=== PATIENT | male | born 1945 | race Caucasian/White ===

== ENCOUNTER → 2021-06-11 10:34 | Outpatient (BNVA) | payer MEDICARE, OTHER, SELFPAY | PROVIDERS: PCP Family Medicine; Visit Provider Internal Medicine Cardiovascular Disease | DX: Z79.01 Long term (current) use of anticoagulants (principal) ==

== ENCOUNTER → 2021-06-20 08:06 | Outpatient (BNVA) | payer MEDICARE, OTHER, SELFPAY | PROVIDERS: PCP Family Medicine; Visit Provider Internal Medicine Cardiovascular Disease | DX: Z79.01 Long term (current) use of anticoagulants (principal) ==

== ENCOUNTER → 2021-06-25 10:13 | Outpatient (BNVA) | payer MEDICARE, OTHER, SELFPAY | PROVIDERS: PCP Family Medicine; Visit Provider Internal Medicine Cardiovascular Disease | DX: Z79.01 Long term (current) use of anticoagulants (principal) ==

== ENCOUNTER → 2021-07-04 08:57 | Outpatient (BNVA) | payer MEDICARE, OTHER, SELFPAY | PROVIDERS: PCP Family Medicine; Visit Provider Internal Medicine Cardiovascular Disease | DX: Z79.01 Long term (current) use of anticoagulants (principal) ==

== ENCOUNTER → 2021-07-11 13:25 | Outpatient (BNVA) | payer MEDICARE, OTHER, SELFPAY | PROVIDERS: PCP Family Medicine; Visit Provider Internal Medicine Cardiovascular Disease | DX: I35.8 Other nonrheumatic aortic valve disorders (principal); Z79.01 Long term (current) use of anticoagulants ==

== ENCOUNTER → 2021-07-18 08:54 | Outpatient (BNVA) | payer MEDICARE, OTHER, SELFPAY | PROVIDERS: PCP Family Medicine; Visit Provider Internal Medicine Cardiovascular Disease | DX: Z79.01 Long term (current) use of anticoagulants (principal) ==

== ENCOUNTER → 2021-07-30 08:01 | Outpatient (BNVA) | payer MEDICARE, OTHER, SELFPAY | PROVIDERS: PCP Family Medicine; Visit Provider Internal Medicine Cardiovascular Disease | DX: Z79.01 Long term (current) use of anticoagulants (principal) ==

== ENCOUNTER → 2021-08-08 08:43 | Outpatient (BNVA) | payer MEDICARE, OTHER, SELFPAY | PROVIDERS: PCP Family Medicine; Visit Provider Internal Medicine Cardiovascular Disease | DX: Z79.01 Long term (current) use of anticoagulants (principal) ==

== ENCOUNTER 2021-08-14 10:46 | Outpatient (CLI) | payer MEDICARE, OTHER, SELFPAY ==
--- NOTE | 2021-08-14 10:57 | USCV_ITS ---
Hernandez Madrigal Age: 76 Gender: M : 1945 Exam Date: 08/14/2021 11:24 Ordering Phys: Samira Mccormick MD ([email or web address]) Technologist: SHANNAN [place] [facility] [place]: Prosthetic aortic valve BP: 156 / 72 HR: 61 Rhythm: Sinus Technical Quality: Adequate MEASUREMENTS (Male / Female) Normal Values 2D ECHO LV Diastolic Diameter PLAX 3.8 cm 4.2 - 5.9 / 3.9 - 5.3 cm LV Systolic Diameter PLAX 2.3 cm IVS Diastolic Thickness 1.0 cm 0.6 - 1.0 / 0.6 - 0.9 cm IVS Systolic Thickness 1.3 cm LVPW Diastolic Thickness 1.3 cm 0.6 - 1.0 / 0.6 - 0.9 cm LVPW Systolic Thickness 1.4 cm LVOT Diameter 1.9 cm LV Ejection Fraction 2D Teich 35.7 % LV Ejection Fraction MOD 2C 72.3 % LV Ejection Fraction 2C AL 72.5 % LA Diameter 2.2 cm Aorta at Sinotubular Diameter 1.6 cm IVC Diameter 1.8 cm M-MODE Aortic Annulus Diameter 1.6 cm LA Ao Ratio MM 1.3 MV E Point Septal Separation 0.3 cm DOPPLER AV Peak Velocity 175.0 cm/s LVOT Peak Velocity 113.0 cm/s AV Area Cont Eq vti 2.2 cm squared AV Area Cont Eq pk 1.8 cm squared MV Area PHT 2.0 cm squared Mitral E to A Ratio 0.8 MV E' Velocity 35.0 cm/s Mitral E to MV E' Ratio 9.5 Mitral E to LV E' Lateral Ratio 10.6 Mitral E to LV E' Septal Ratio 8.7 TR Peak Velocity 259.0 cm/s TR Peak Gradient 26.8 mmHg TV Peak E Velocity 60.0 cm/s Right Atrial Pressure 3.0 mmHg Pulmonary Artery Systolic Pressu 29.8 mmHg PV Peak Velocity 113.3 cm/s RV Acceleration Time 0.2 s RV Ejection Time 0.3 s RV AcT/ET 0.5 FINDINGS Left Ventricle Normal left ventricular cavity size. Upper normal left ventricular wall thickness. Normal left ventricular systolic function. Left ventricular ejection fraction is estimated at 75%. No regional wall motion abnormalities. Normal diastolic function. Right Ventricle Normal right ventricular size and systolic function. RVSP could not be calculated due to incomplete tricuspid regurgitation velocity profile. Right Atrium Right atrium not well visualized. Right atrial pressure estimated at 3 mmHg. Left Atrium Normal left atrial size. Mitral Valve Moderate mitral annular calcification. Mildly thickened mitral valve. No mitral valve stenosis. No mitral valve regurgitation. Aortic Valve Mechanical prosthetic aortic valve well-seated and normally functioning. No aortic valve stenosis or regurgitation. Tricuspid Valve Structurally normal tricuspid valve. Trace tricuspid valve regurgitation. Pulmonic Valve Pulmonic valve not well visualized. No pulmonary valve stenosis. No pulmonary valve regurgitation. Pericardium No pericardial effusion. Prominent epicardial fat. Aorta Normal-sized aortic root. Normal-sized inferior vena cava with normal respiratory variation. CONCLUSIONS 1. This is a technically difficult study. Ultrasound enhancing agent was used per protocol. 2. Normal left ventricular cavity size and systolic function. Upper normal left ventricular wall thickness. Left ventricular ejection fraction is estimated at 75%. No regional wall motion abnormalities. Normal diastolic function. 3. Mechanical prosthetic aortic valve well-seated and normally functioning. No aortic valve stenosis or regurgitation. 4. No prior similar studies to compare. Samira Mccormick MD (Electronically Signed) Final Date: 20 Aug 2021 18:42 S
[2021-08-14] MEDS: perflutren protein-a microsphr 0.22 mg/mL SDV 3 mL IV (12:18)
== END 2021-08-14 10:47 | disposition home or self-care (01) ==
LOC: RAD 10:51
PROVIDERS: PCP Family Medicine; Visit Provider Internal Medicine Gastroenterology
DX: Z95.2 Presence of prosthetic heart valve (principal)
CPT/HCPCS: C8929

== ENCOUNTER → 2021-08-15 10:59 | Outpatient (BNVA) | payer MEDICARE, OTHER, SELFPAY | PROVIDERS: PCP Family Medicine; Visit Provider Internal Medicine Cardiovascular Disease | DX: Z79.01 Long term (current) use of anticoagulants (principal) ==

== ENCOUNTER → 2021-08-22 12:58 | Outpatient (BNVA) | payer MEDICARE, OTHER, SELFPAY | PROVIDERS: PCP Family Medicine; Visit Provider Internal Medicine Cardiovascular Disease | DX: Z79.01 Long term (current) use of anticoagulants (principal) ==

== ENCOUNTER → 2021-08-29 11:39 | Outpatient (BNVA) | payer MEDICARE, OTHER, SELFPAY | PROVIDERS: PCP Family Medicine; Visit Provider Internal Medicine Cardiovascular Disease | DX: Z79.01 Long term (current) use of anticoagulants (principal) ==

== ENCOUNTER → 2021-09-03 08:48 | Outpatient (BNVA) | payer MEDICARE, OTHER, SELFPAY | PROVIDERS: PCP Family Medicine; Visit Provider Internal Medicine Cardiovascular Disease | DX: Z95.2 Presence of prosthetic heart valve (principal) | CPT/HCPCS: 85610 ==

== ENCOUNTER → 2021-09-05 13:02 | Outpatient (BNVA) | payer MEDICARE, OTHER, SELFPAY | PROVIDERS: PCP Family Medicine; Visit Provider Internal Medicine Cardiovascular Disease | DX: Z79.01 Long term (current) use of anticoagulants (principal) ==

== ENCOUNTER → 2021-09-12 10:24 | Outpatient (BNVA) | payer MEDICARE, OTHER, SELFPAY | PROVIDERS: PCP Family Medicine; Visit Provider Internal Medicine Cardiovascular Disease | DX: Z79.01 Long term (current) use of anticoagulants (principal) ==

== ENCOUNTER → 2021-09-19 09:09 | Outpatient (BNVA) | payer MEDICARE, OTHER, SELFPAY | PROVIDERS: PCP Family Medicine; Visit Provider Internal Medicine Cardiovascular Disease | DX: Z79.01 Long term (current) use of anticoagulants (principal) ==

== ENCOUNTER → 2021-09-26 09:15 | Outpatient (BNVA) | payer MEDICARE, OTHER, SELFPAY | PROVIDERS: PCP Family Medicine; Visit Provider Internal Medicine Cardiovascular Disease | DX: Z79.01 Long term (current) use of anticoagulants (principal) ==

== ENCOUNTER → 2021-10-02 16:51 | Outpatient (BNVA) | payer MEDICARE, OTHER, SELFPAY | PROVIDERS: PCP Family Medicine; Visit Provider Internal Medicine Cardiovascular Disease | DX: Z79.01 Long term (current) use of anticoagulants (principal) ==

== ENCOUNTER → 2021-10-10 10:26 | Outpatient (BNVA) | payer MEDICARE, OTHER, SELFPAY | PROVIDERS: PCP Family Medicine; Visit Provider Internal Medicine Cardiovascular Disease | DX: Z79.01 Long term (current) use of anticoagulants (principal) ==

== ENCOUNTER → 2021-10-17 13:51 | Outpatient (BNVA) | payer MEDICARE, OTHER, SELFPAY | PROVIDERS: PCP Family Medicine; Visit Provider Internal Medicine Cardiovascular Disease | DX: Z79.01 Long term (current) use of anticoagulants (principal) ==

== ENCOUNTER → 2021-10-24 13:25 | Outpatient (BNVA) | payer MEDICARE, OTHER, SELFPAY | PROVIDERS: PCP Family Medicine; Visit Provider Internal Medicine Cardiovascular Disease | DX: Z79.01 Long term (current) use of anticoagulants (principal) ==

== ENCOUNTER → 2021-10-31 08:18 | Outpatient (BNVA) | payer MEDICARE, OTHER, SELFPAY | PROVIDERS: PCP Family Medicine; Visit Provider Internal Medicine Cardiovascular Disease | DX: Z79.01 Long term (current) use of anticoagulants (principal) ==

== ENCOUNTER → 2021-11-18 13:16 | Outpatient (BNVA) | payer MEDICARE, OTHER, SELFPAY | PROVIDERS: PCP Family Medicine; Visit Provider Internal Medicine Cardiovascular Disease | DX: I25.10 Atherosclerotic heart disease of native coronary artery without angina pectoris (principal); I10 Essential (primary) hypertension; Z95.2 Presence of prosthetic heart valve; I45.10 Unspecified right bundle-branch block; Z95.1 Presence of aortocoronary bypass graft; Z79.01 Long term (current) use of anticoagulants; F17.200 Nicotine dependence, unspecified, uncomplicated | CPT/HCPCS: 99214 ==

== ENCOUNTER → 2022-02-06 17:15 | Outpatient (BNVA) | payer MEDICARE, OTHER, SELFPAY | PROVIDERS: PCP Family Medicine; Visit Provider Internal Medicine Cardiovascular Disease | DX: Z95.2 Presence of prosthetic heart valve (principal) | CPT/HCPCS: 85610 ==

== ENCOUNTER 2022-02-09 12:51 | Outpatient (CLI) | payer MEDICARE, OTHER, SELFPAY ==
[2022-02-09 13:47] LABS: INR 1.71 (0.8-1.2)
== END 2022-02-09 12:52 | disposition home or self-care (01) ==
LOC: LAB 12:59
PROVIDERS: PCP Family Medicine; Visit Provider Internal Medicine Cardiovascular Disease
DX: Z95.2 Presence of prosthetic heart valve (principal); Z79.01 Long term (current) use of anticoagulants
CPT/HCPCS: 36415; 85610

== ENCOUNTER → 2022-08-12 13:20 | Outpatient (BNVA) | payer MEDICARE, OTHER, SELFPAY | PROVIDERS: PCP Family Medicine; Visit Provider Internal Medicine Cardiovascular Disease | DX: I25.10 Atherosclerotic heart disease of native coronary artery without angina pectoris (principal); Z95.2 Presence of prosthetic heart valve; I45.10 Unspecified right bundle-branch block; E78.5 Hyperlipidemia, unspecified; I10 Essential (primary) hypertension; Z95.1 Presence of aortocoronary bypass graft; F17.200 Nicotine dependence, unspecified, uncomplicated; Z79.01 Long term (current) use of anticoagulants | CPT/HCPCS: 99213 ==

== ENCOUNTER → 2023-01-04 15:04 | Outpatient (BNVA) | payer MEDICARE, OTHER, SELFPAY | PROVIDERS: PCP Family Medicine; Visit Provider Nurse Practitioner Family | DX: I10 Essential (primary) hypertension (principal); F17.200 Nicotine dependence, unspecified, uncomplicated | CPT/HCPCS: 99213 ==

== ENCOUNTER → 2023-03-26 09:59 | Outpatient (BNVA) | payer MEDICARE, OTHER, SELFPAY | PROVIDERS: PCP Family Medicine; Visit Provider Internal Medicine Cardiovascular Disease | DX: Z95.2 Presence of prosthetic heart valve (principal); Z95.1 Presence of aortocoronary bypass graft; I25.10 Atherosclerotic heart disease of native coronary artery without angina pectoris; I10 Essential (primary) hypertension; E78.5 Hyperlipidemia, unspecified; I45.10 Unspecified right bundle-branch block | CPT/HCPCS: 99213 ==

== ENCOUNTER → 2023-07-15 10:41 | Outpatient (BNVA) | payer MEDICARE, OTHER, SELFPAY | PROVIDERS: PCP Family Medicine; Visit Provider Nurse Practitioner Family | DX: I25.10 Atherosclerotic heart disease of native coronary artery without angina pectoris (principal); Z95.1 Presence of aortocoronary bypass graft; I10 Essential (primary) hypertension; F17.200 Nicotine dependence, unspecified, uncomplicated; Z95.0 Presence of cardiac pacemaker; Z79.01 Long term (current) use of anticoagulants | CPT/HCPCS: 99214 ==

== ENCOUNTER → 2023-07-16 13:44 | Outpatient (BNVA) | payer MEDICARE, OTHER, SELFPAY | PROVIDERS: PCP Family Medicine; Visit Provider Nurse Practitioner Family | DX: I10 Essential (primary) hypertension (principal); Z95.1 Presence of aortocoronary bypass graft; I25.10 Atherosclerotic heart disease of native coronary artery without angina pectoris | CPT/HCPCS: 80048; 83880; 85025; 85610 ==

== ENCOUNTER 2023-08-02 12:47 | Outpatient (CLI) | payer MEDICARE, OTHER, SELFPAY ==
--- NOTE | 2023-08-02 13:00 | USCV_ITS ---
Hernandez Madrigal Age: 77 Gender: M : 1945 Exam Date: 08/02/2023 13:01 Ordering Phys: Nicolette Steiner Technologist: ILYA [place] [facility] [place]: Mechanical AOV, Increased BNP, CAD, CABG BP: 162 / 85 HR: 149 Rhythm: Sinus Technical Quality: Adequate MEASUREMENTS (Male / Female) Normal Values 2D ECHO LV Diastolic Diameter PLAX 4.9 cm 4.2 - 5.9 / 3.9 - 5.3 cm IVS Diastolic Thickness 0.9 cm 0.6 - 1.0 / 0.6 - 0.9 cm IVS Systolic Thickness 1.9 cm LVPW Diastolic Thickness 1.4 cm 0.6 - 1.0 / 0.6 - 0.9 cm LVPW Systolic Thickness 2.0 cm LVOT Diameter 2.0 cm LV Ejection Fraction 2D Teich 69.7 % LV Ejection Fraction MOD 2C 51.5 % LV Ejection Fraction 2C AL 51.4 % LA Diameter 2.7 cm RA Systolic Volume 4C AL 14.5 ml RA Systolic Volume 4C MOD 15.1 ml LA Sys Volume AL 49.1 cm cubed LA Sys Volume Index AL 30.9 cm cubed/m squared Aorta at Sinotubular Diameter 2.2 cm IVC Diameter 1.3 cm M-MODE LA Ao Ratio MM 0.9 AV Cusp Separation MM 2.0 cm DOPPLER AV Peak Velocity 166.7 cm/s LVOT Peak Velocity 60.0 cm/s AV Area Cont Eq vti 1.3 cm squared AV Area Cont Eq pk 1.1 cm squared MV Peak Velocity 77.0 cm/s MV Area PHT 1.8 cm squared TV Peak Velocity 151.5 cm/s TR Peak Velocity 187.5 cm/s TR Peak Gradient 14.1 mmHg TR Mean Velocity 147.0 cm/s TR Mean Gradient 9.5 mmHg TR Velocity Time Integral 50.6 cm Right Atrial Pressure 3.0 mmHg Pulmonary Artery Systolic Pressu 17.1 mmHg PV Peak Velocity 78.5 cm/s RV Ejection Time 0.3 s FINDINGS Left Ventricle Moderate concentric left ventricular hypertrophy. Mild hypokinesia of the basal inferior wall segment. Overall ejection fraction is 51%.Grade III/IV diastolic dysfunction (restrictive filling pattern), severely elevated filling pressures. Right Ventricle The right ventricle is normal in size and function. Right Atrium The right atrium is normal in size. Left Atrium Mildly increased left atrial size. Left atrial end-systolic volume index of 30.48 mL/m squared Mitral Valve Thickened mitral valve. Mild mitral valve regurgitation. Aortic Valve Trace to mild aortic valve regurgitation. The prosthetic valve with aortic position appears to be well-seated. Peak gradient across the aortic valve is 1.7 m/s Tricuspid Valve No gross abnormalities noted.trace tricuspid valve regurgitation. Pulmonic Valve Trace pulmonary valve regurgitation. Pericardium Normal pericardium without effusion. Aorta Normal aortic annulus size. IVC Normal inferior vena cava. CONCLUSIONS Moderate concentric left ventricular hypertrophy. Mild hypokinesia of the basal inferior wall segment. Overall ejection fraction is 51%. Grade III/IV diastolic dysfunction (restrictive filling pattern), severely elevated filling pressures. Mildly increased left atrial size. Left atrial end-systolic volume index of 30.48 mL/m squared. Thickened mitral valve. Mild mitral valve regurgitation. The prosthetic valve with aortic position appears to be well- seated. Peak gradient across the aortic valve is 1.7 m/s. Trace to mild aortic valve regurgitation. Trace pulmonary valve regurgitation. Estimated pulmonary artery peak systolic pressure, probably within normal limits There is no pericardial effusion. There are no intracardiac masses. Comparison with the previous study is difficult because the differences in the technical quality. Dr Kathia Jeong MD [facility] (Electronically Signed) Final Date: 08 August 2023 17:27 S
== END 2023-08-02 12:48 | disposition home or self-care (01) ==
LOC: RAD 12:48
PROVIDERS: PCP Family Medicine; Visit Provider Nurse Practitioner Family
DX: Z95.2 Presence of prosthetic heart valve (principal); Z95.1 Presence of aortocoronary bypass graft; I51.7 Cardiomegaly
CPT/HCPCS: 93306

== ENCOUNTER → 2023-10-06 12:58 | Outpatient (BNVA) | payer MEDICARE, OTHER, SELFPAY | PROVIDERS: PCP Family Medicine; Visit Provider Internal Medicine Cardiovascular Disease | DX: Z95.2 Presence of prosthetic heart valve (principal); Z95.1 Presence of aortocoronary bypass graft; I25.10 Atherosclerotic heart disease of native coronary artery without angina pectoris; I10 Essential (primary) hypertension; E78.5 Hyperlipidemia, unspecified; F17.210 Nicotine dependence, cigarettes, uncomplicated; Z79.01 Long term (current) use of anticoagulants | CPT/HCPCS: 99213 ==

== ENCOUNTER 2024-01-14 09:44 | Outpatient (CLI) | payer MEDICARE, OTHER, SELFPAY ==
[2024-01-14 10:30] LABS: INR 1.39 (0.83-1.21); Prothrombin Time (Patient) 17.5 Seconds (12.0-15.1)
== END 2024-01-14 09:45 | disposition home or self-care (01) ==
LOC: LAB 09:46
PROVIDERS: PCP Family Medicine; Visit Provider Internal Medicine Cardiovascular Disease
DX: Z95.2 Presence of prosthetic heart valve (principal)
CPT/HCPCS: 36415; 85610

== ENCOUNTER 2024-01-31 16:36 | Outpatient (CLI) | payer MEDICARE, OTHER, SELFPAY ==
--- NOTE | 2024-01-31 16:38 | XRR_ITS ---
PROCEDURE INFORMATION: Exam: XR Right Foot Exam date and time: 01/31/2024 4:44 PM Age: 78 years old Clinical indication: Pain; Foot; Right; Prior surgery; Surgery date: 6+ months; Additional info: R/O osteo TECHNIQUE: Imaging protocol: Radiologic exam of the right foot. Views: 3 or more views. COMPARISON: No relevant prior studies available. FINDINGS: Bones/joints: Prior amputation of the 3rd digit of the level of the metatarsophalangeal joint. Level on sclerotic focus adjacent to the 3rd metatarsal head. Areas of mild cortical irregularity also seen within the 3rd metatarsal head. Hallux valgus with an osseous bunion. Scattered mild degenerative changes throughout the interphalangeal joints. No acute fracture or dislocation. Soft tissues: Several subcutaneous gas locules are seen at the level of the 3rd metatarsal head with areas of soft tissue ulceration. Vasculature: Scattered vascular calcifications. XR/XR foot RT min 3V* [id number] IMPRESSION: Amputation of the 3rd digit at the MTP joint. Adjacent soft tissue ulceration with subcutaneous gas concerning for cellulitis. Underlying osteomyelitis difficult to entirely exclude. MRI could be considered for further assessment if warranted.
[2024-01-31 17:14] LABS: Basophils # 0.1 10^3/uL (0.0-0.1); Basophils % 0.9 %; Eosinophils # 0.1 10^3/uL (0.0-0.8); Eosinophils % 1.6 %; Hematocrit 46.9 % (37-53); Lymphocytes # 1.9 10^3/uL (0.8-4.8); Lymphocytes % 21.7 %; Mean Corpuscular HGB Conc 34.3 g/dL (30-55); Mean Corpuscular Hemoglobin 32.4 pg (27-33); Mean Corpuscular Volume 94.4 fl (82-101); Monocytes # 0.6 10^3/uL (0.2-0.9); Neutrophils % 68.1 %; Nucleated Red Blood Cells % 0 %; Platelet Count 298 10^3/cmm (157-399); Red Blood Count 4.97 10^6/uL (3.85-5.65); Red Cell Distribution Width 14.5 % (12.1-15.1); White Blood Count 8.95 10^3/uL (3.29-11.43)
[2024-01-31 17:20] LABS: Erythrocyte Sedimentation Rate 11 mm/hr (0-10)
[2024-01-31 17:51] LABS: Anion Gap 17.1 (5-19); Blood Urea Nitrogen 17 mg/dL (8-23); Calcium 9.3 mg/dL (8.5-10.5); Carbon Dioxide 24 mmol/L (22-29); Chloride 100 mmol/L (98-107); Glucose 89 mg/dL (65-115); Osmolality Calculated 285 mOsm/kg (285-295); Potassium 4.1 mmol/L (3.5-5.1); Sodium 137 mmol/L (136-145)
== END 2024-01-31 16:37 | disposition home or self-care (01) ==
LOC: LAB 16:38
PROVIDERS: PCP Family Medicine; Visit Provider Thoracic Surgery (Cardiothoracic Vascular Surgery)
DX: T87.89 Other complications of amputation stump (principal); I25.10 Atherosclerotic heart disease of native coronary artery without angina pectoris; T81.89XA Other complications of procedures, not elsewhere classified, initial encounter; X58.XXXA Exposure to other specified factors, initial encounter; I96 Gangrene, not elsewhere classified; T87.81 Dehiscence of amputation stump; Y83.8 Other surgical procedures as the cause of abnormal reaction of the patient, or of later complication, without mention of misadventure at the time of the procedure; Z89.421 Acquired absence of other right toe(s)
CPT/HCPCS: 11043; 36415; 73630; 80048; 85025; 85651; 86140; 87070; 87075; 87077; 87176; 87186; 87205; 99213

== ENCOUNTER 2024-02-15 08:02 | Outpatient (CLI) | payer MEDICARE, OTHER, SELFPAY ==
--- NOTE | 2024-02-15 08:00 | MR_ITS ---
WS: [id number] MRI RIGHT FOOT WITH AND WITHOUT CONTRAST. COMPARISON: Radiographs 01/31/2024 Multiplanar, multisequence imaging is performed with and without contrast. MultiHance 10 mL. Status post amputation third toe. At the amputation site there is edema and enhancement involving the head of the third metatarsal and the adjacent soft tissues. Fourth metatarsal: Marrow edema with enhancement in the distal 1.5 cm of the metatarsal with adjacent cellulitis. Fifth metatarsal normal. Second metatarsal: Very subtle area of edema in the very distal metatarsal head. Marked hallux valgus deformity. No significant soft tissue edema with enhancement is at the amputation site of the third phalanx and extending adjacent to the second metatarsal head. Focal soft tissue ulcer measuring 10 x 10 mm along the dorsal surface of the foot at the level of the amputated third phalanx and extending over the fourth metatarsal head. Mild enhancement but no focal abscess. MR/MR foot RT wo/w con [id number] IMPRESSION: 1. Status post amputation third toe. 2. Findings of osteomyelitis involving the head of the third metatarsal, dista l fourth metatarsal and the very distal second metatarsal head. 3. There is extensive enhancement of soft tissues consistent with cellulitis a t the level of the metatarsal heads. Most significant cellulitis at the amputat ion site of the third phalanx. 4. Dorsal soft tissue ulcer measures 10 x 10 mm with enhancement but no absces s at the level of the amputated third phalanx towards the fourth metatarsal.
[2024-02-15] MEDS: gadobenate dimeglumine 20 mL vial IV (08:55)
== END 2024-02-15 08:03 | disposition home or self-care (01) ==
LOC: RAD 08:02
PROVIDERS: PCP Family Medicine; Visit Provider Thoracic Surgery (Cardiothoracic Vascular Surgery)
DX: T81.31XA Disruption of external operation (surgical) wound, not elsewhere classified, initial encounter (principal); M86.171 Other acute osteomyelitis, right ankle and foot; L03.115 Cellulitis of right lower limb; L97.519 Non-pressure chronic ulcer of other part of right foot with unspecified severity; Z89.421 Acquired absence of other right toe(s); X58.XXXA Exposure to other specified factors, initial encounter; I96 Gangrene, not elsewhere classified; T87.81 Dehiscence of amputation stump; Y83.8 Other surgical procedures as the cause of abnormal reaction of the patient, or of later complication, without mention of misadventure at the time of the procedure
CPT/HCPCS: 11044; 73720; 87070; 87077; 87176; 87186; 87205

== ENCOUNTER 2024-02-16 13:40 | Outpatient (CLI) | payer MEDICARE, OTHER, SELFPAY ==
--- NOTE | 2024-02-16 13:45 | CTR_ITS ---
PROCEDURE INFORMATION: Exam: CTA Abdominal Aorta and Bilateral Lower Extremities (Run-off) With Contrast Exam date and time: 02/16/2024 1:52 PM Age: 78 years old Clinical indication: Osteomyelitis. Prior right foot surgery. TECHNIQUE: Imaging protocol: Computed tomographic angiography of the of the abdominal aorta, pelvis and bilateral lower extremities with contrast. 3D rendering (Not supervised by radiologist): MIP and/or 3D reconstructed images were created by the technologist. Radiation optimization: All CT scans at this facility use at least one of these dose optimization techniques: automated exposure control; mA and/or kV adjustment per patient size (includes targeted exams where dose is matched to clinical indication); or iterative reconstruction. Contrast material: OMNI 350; Contrast volume: 125 ml; Contrast route: INTRAVENOUS (IV); COMPARISON: MR foot RT wo/w con [id number] 02/15/2024 8:27 AM RADIATION DOSE METRICS: Total DLP (mGy-cm): 1165.27 FINDINGS: Aorta: There is prominent atherosclerotic plaque. Infrarenal abdominal aorta is ectatic measuring 2.9 cm in the transverse dimension. 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 Celiac trunk and mesenteric arteries: There is atherosclerotic plaque at the origin of the celiac trunk without significant stenosis. Atherosclerotic plaque is present in the splenic artery with regions of moderate to severe stenosis. There is atherosclerotic plaque in the proximal superior mesenteric artery without significant stenosis. Renal arteries: There is atherosclerotic plaque in the proximal right renal artery with a short segment of moderate to severe stenosis proximally 4 mm distal to the origin. Atherosclerotic plaque at the origin of the left renal artery without significant stenosis. Right iliac arteries: Prominent atherosclerotic plaque. The right internal iliac artery is occluded by plaque. Atherosclerotic plaque in the right external iliac artery results in regions of [id number] stenosis. Right femoral/popliteal arteries: There is atherosclerotic plaque in the right femoral artery with regions of moderate to severe stenosis. There is occlusion of the distal aspect of the popliteal artery. Right infrapopliteal arteries: Limited evaluation of the runoff vessels to the foot secondary to calcified atheromatous disease. There are regions of occlusion of the right anterior tibial, posterior tibial, peroneal arteries. Left iliac arteries: There is atherosclerotic plaque throughout with regions of mild to moderate stenosis of the external and internal iliac arteries. Left femoral/popliteal arteries: Atherosclerotic plaque in the left femoral artery results in regions of [id number] stenosis. There is mild narrowing of the popliteal artery by atherosclerotic plaque. Left infrapopliteal arteries: Limited evaluation of the runoff vessels to the foot secondary to calcified atheromatous disease. There are regions of occlusion of the right anterior tibial, posterior tibial, peroneal arteries. Lungs: There are emphysematous changes at the lung bases. Streaky densities at the lung bases are most consistent with scarring and/or atelectasis. Mediastinal space: There are post-sternotomy changes and postoperative changes partially visualized in the anterior mediastinum. Liver: Subcentimeter hepatic cyst has benign features. Follow-up is not necessary. Gallbladder and biliary ducts: Cholelithiasis. Pancreas: Unremarkable. No mass. No ductal dilation. Spleen: Lobulated splenic contour. Adrenal glands: Normal. No mass. Kidneys and ureters: Normal. No mass. Stomach and bowel: There is diverticulosis of the colon without evidence of diverticulitis. There is mucosal thickening of the distal esophagus and gastroesophageal junction. Appendix: No evidence of appendicitis. Urinary bladder: Bladder wall is thickened and irregular in contour. Reproductive: Prostate gland is heterogeneous, enlarged, and indents the base of the bladder. Intraperitoneal space: Minimal diffuse hazy mesenteric stranding. Lymph nodes: No lymphadenopathy. Bones/joints: No acute fracture. No dislocation. Soft tissues: There is edema in the soft tissues. CT/CT angio abd aorta runof [id number] IMPRESSION: 1. Multivessel atherosclerotic disease with regions of occlusion and severe stenosis as described in detail above. 2. The bladder wall is thickened. This is nonspecific and may represent bladder outlet obstruction, inflammation or infection. Neoplastic process is included in the differential. 3. Prostate gland is heterogeneous, enlarged, and indents the base of the bladder. 4. Minimal diffuse hazy mesenteric stranding is nonspecific and can be seen with chronic systemic disease or mesenteritis. 5. There is mucosal thickening of the distal esophagus and gastroesophageal junction consistent with esophagitis/gastritis. Follow-up to exclude neoplasm as clinically warranted. 6. Emphysematous changes are present at the lung bases.
[2024-02-16] MEDS: iohexol 350 mg/mL 500 mL Btl (per mL) IV (13:57)
== END 2024-02-16 13:41 | disposition home or self-care (01) ==
PROVIDERS: PCP Family Medicine; Visit Provider Thoracic Surgery (Cardiothoracic Vascular Surgery)
DX: I77.811 Abdominal aortic ectasia (principal); N32.89 Other specified disorders of bladder; N40.0 Benign prostatic hyperplasia without lower urinary tract symptoms; J43.9 Emphysema, unspecified; I77.4 Celiac artery compression syndrome; I70.8 Atherosclerosis of other arteries; I72.8 Aneurysm of other specified arteries; Q27.1 Congenital renal artery stenosis; I70.203 Unspecified atherosclerosis of native arteries of extremities, bilateral legs; Q44.6 Cystic disease of liver; K80.20 Calculus of gallbladder without cholecystitis without obstruction; Q89.09 Congenital malformations of spleen; K57.90 Diverticulosis of intestine, part unspecified, without perforation or abscess without bleeding
CPT/HCPCS: 75635

== ENCOUNTER 2024-02-22 10:11 | Outpatient (CLI) | payer MEDICARE, OTHER, SELFPAY ==
--- NOTE | 2024-02-22 10:15 | USCV_ITS ---
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 Triphasic arterial Doppler waveforms in the iliac , femoral and popliteal arteries. Monophasic, low amplitude and continuous waveforms in the dorsalis pedis and posterior tibial arteries CONCLUSIONS Abnormal resting VANESA on the right side, suggesting mild peripheral artery disease Features suggestive of collateral filling of the infrapopliteal vessels, may suggest high-grade stenosis in the popliteal artery Consider CTA or peripheral angiogram to better evaluate the distal vessels, if clinically indicated Dr Kathia Jeong MD FAC (Electronically Signed) Final Date: 22 February 2024 20:23 S
== END 2024-02-22 10:12 | disposition home or self-care (01) ==
LOC: RAD 10:11
PROVIDERS: PCP Family Medicine; Visit Provider Thoracic Surgery (Cardiothoracic Vascular Surgery)
DX: I25.10 Atherosclerotic heart disease of native coronary artery without angina pectoris (principal); T87.81 Dehiscence of amputation stump; Y83.8 Other surgical procedures as the cause of abnormal reaction of the patient, or of later complication, without mention of misadventure at the time of the procedure; Z89.422 Acquired absence of other left toe(s)
CPT/HCPCS: 11042; 93926

== ENCOUNTER → 2024-03-02 09:00 | Outpatient (BNVA) | payer MEDICARE, OTHER, SELFPAY | PROVIDERS: PCP Family Medicine; Visit Provider Nurse Practitioner Family | DX: I73.9 Peripheral vascular disease, unspecified (principal); L97.918 Non-pressure chronic ulcer of unspecified part of right lower leg with other specified severity; Z87.891 Personal history of nicotine dependence | CPT/HCPCS: 99214 ==

== ENCOUNTER → 2024-03-14 10:54 | Outpatient (BNVA) | payer MEDICARE, OTHER, SELFPAY | PROVIDERS: PCP Family Medicine; Visit Provider Thoracic Surgery (Cardiothoracic Vascular Surgery) | DX: I73.9 Peripheral vascular disease, unspecified (principal); L97.511 Non-pressure chronic ulcer of other part of right foot limited to breakdown of skin; M86.171 Other acute osteomyelitis, right ankle and foot | CPT/HCPCS: 97597 ==

== ENCOUNTER 2024-03-16 05:41 | Outpatient (CLI) | payer MEDICARE, OTHER, SELFPAY ==
[2024-03-16] MEDS: aspirin 325 mg Tablet PO (06:25)
[2024-03-16] MEDS: diphenhydrAMINE 50 mg Capsule PO (06:25)
[2024-03-16 06:36] VITALS: BP 181/86; PULSE 61; RESP 16; TEMP 36.7; O2SAT 97; BMI 16.6
[2024-03-16 06:49] LABS: Basophils # 0.1 10^3/uL (0.0-0.1); Basophils % 0.6 %; Eosinophils # 0.3 10^3/uL (0.0-0.8); Eosinophils % 2.5 %; Hematocrit 38.2 % (37-53); Lymphocytes # 2.7 10^3/uL (0.8-4.8); Lymphocytes % 26.9 %; Mean Corpuscular HGB Conc 33.2 g/dL (30-55); Mean Corpuscular Hemoglobin 32.1 pg (27-33); Mean Corpuscular Volume 96.5 fl (82-101); Monocytes % 9.6 %; Neutrophils # 5.99 10^3/uL (1.8-7.7); Neutrophils % 59.8 %; Nucleated Red Blood Cells % 0 %; Platelet Count 262 10^3/cmm (157-399); Red Blood Count 3.96 10^6/uL (3.85-5.65); Red Cell Distribution Width 15.8 % (12.1-15.1); White Blood Count 10.01 10^3/uL (3.29-11.43)
[2024-03-16 07:02] LABS: Blood Urea Nitrogen 18 mg/dL (8-23); Calcium 8.2 mg/dL (8.5-10.5); Carbon Dioxide 25 mmol/L (22-29); Chloride 101 mmol/L (98-107); Creatinine Clr Calc Pharmacy 50.2889; Glucose 93 mg/dL (65-115); Osmolality Calculated 284 mOsm/kg (285-295); Sodium 136 mmol/L (136-145)
[2024-03-16 07:11] LABS: INR 0.95 (0.8-1.2)
--- NOTE | 2024-03-16 07:41 | W.PM.OPSUD ---
Surgery/Procedure H&P Update DATE OF PROCEDURE: March 16, 2024 DATE H&P PERFORMED: 03/02/24 H&P UPDATE INFORMATION: I have reviewed H&P completed within last 30 days, I have examined patient prior to procedure and No changes to prior documentation PREOP DIAGNOSIS: Critical limb ischemia/nonhealing right foot ulcer/PAD/abnormal CTA runoff PLANNED PROCEDURE: Operation Date: 03/16/24 07:00 Proposed Procedures p Peripheral Diagnostic - Peripheral angio bilateral(Bilateral) - Idalia Thapa MD PATIENT REASSESSED PRIOR TO SEDATION, WITH NO CHANGE NOTED: Yes PHYSICAL EXAM: alert, oriented x 3, clear to auscultation bilaterally, regular rate & rhythm and operative site marked OTHER PERTINENT EXAM FINDINGS: Patient has been explained all risk-benefit and alternative for the procedure patient understand risk of major minor bleed urgent or emergent vascular surgery acute limb ischemia limb loss amputation due to embolization or vascular injury. Patient understand risk for stroke hematoma pseudoaneurysm infection. Patient understand risk for contrast-induced nephropathy leading to temporary permanent dialysis. He would like to proceed with it.
[2024-03-16 08:00] VITALS: BP 159/65; PULSE 54; RESP 15; O2SAT 97
--- NOTE | 2024-03-16 08:00 | SUR.PHASEII ---
Received the patient back from the dental laboratory worker s/p aborted peripheral angiogram. Patient was unable to lay flat and anesthesia was unavailable to assist with sedation. Will send home today after recovery and reschedule procedure.
[2024-03-16 08:15] VITALS: BP 147/68; PULSE 53; RESP 16; O2SAT 94
--- NOTE | 2024-03-16 08:21 | SUR.PHASEII ---
Dr. Thapa here to speak with the patient and family.
[2024-03-16 08:30] VITALS: BP 157/61; PULSE 50; RESP 12; O2SAT 96
[2024-03-16 08:45] VITALS: BP 142/65; PULSE 57; RESP 19; O2SAT 94
--- NOTE | 2024-03-16 09:07 | P.PN_ITS ---
Subjective 2 Medications: Medication Review Details: Today patient was brought in for peripheral angiogram with indication of critical limb ischemia and nonhealing foot ulcer however after putting him on the table patient was noncooperative moving around even after conscious sedation using fentanyl and Versed. Anesthesia was contacted, anesthesia is busy and not available therefore we we will reschedule the patient under anesthesia in the near future. I was told that possible this coming Wednesday it will be confirmed and patient will be scheduled. Vitals/I&O/Wt Last Vital Signs Temp 98.1 F 03/16/24 06:36 Pulse 57 L 03/16/24 08:45 Resp 19 H 03/16/24 08:45 BP 142/65 03/16/24 08:45 Pulse Ox 94 03/16/24 08:45 O2 Del Method Room Air 03/16/24 08:45 Weight last 48 hrs Weight 103 lb Physical Exam 2 Const: OTHER: GENERAL: Patient is alert, awake and oriented x3. HEART: Regular S1 and S2. No murmur, rub or gallop. LUNGS: Clear to auscultate bilaterally. CENTRAL NERVOUS SYSTEM: Grossly nonfocal. EXTREMITIES: Lower extremities with out edema bilaterally. Data 03/16/24 06:38 03/16/24 06:38 Attestations 2 Medical Necessity Statement*: Patient will be discharged and scheduled with anesthesia as an outpatient for procedure that is peripheral angiogram/angioplasty of the right leg Coding Level of Care Code Acute Code for g Fwd
--- NOTE | 2024-03-16 09:07 | PC.NURSE ---
Addendum entered by Cheryle Slater RN 03/16/24 10:36: Patients daughter Ariela called and reported [facility] pharmacy did not have Lovenox 60mg syringes in stock. Requested nurse to call [facility] pharmacy in [place]. Lovenox was called into [facility] pharmacy Lovenox 60mg Q12 hours X 13 doses. Instructions to start the evening of 03/16 and ending evening of 03/22. Spoke with Anuja the pharmacist. Original Note: Reschedule Note - Lovenox Bridge status Patient tentatively rescheduled for 03/23 at 0830. Patient on warfarin and was bridged with Lovenox therapy for procedure. Verbal orders received from Dr. Thapa for patient to continue to hold warfarin and resume Lovenox 1mg/kg subcutaneous injections BID starting tonight and last dose to be night before procedure. Total doses 13. Verified patient pharmacy [facility].
== END 2024-03-16 09:38 | disposition home or self-care (01) ==
PROVIDERS: PCP Family Medicine; Visit Provider Internal Medicine Cardiovascular Disease
DX: I73.9 Peripheral vascular disease, unspecified (principal); Z53.8 Procedure and treatment not carried out for other reasons; E11.622 Type 2 diabetes mellitus with other skin ulcer; I25.10 Atherosclerotic heart disease of native coronary artery without angina pectoris; Z95.1 Presence of aortocoronary bypass graft; Z79.01 Long term (current) use of anticoagulants; E78.5 Hyperlipidemia, unspecified; I10 Essential (primary) hypertension; Z87.891 Personal history of nicotine dependence
CPT/HCPCS: 80048; 85025; 85610; J1644; J2250; J3010; J7030; Q0163

== ENCOUNTER → 2024-03-21 10:30 | Outpatient (BNVA) | payer MEDICARE, OTHER, SELFPAY | PROVIDERS: PCP Family Medicine; Visit Provider Thoracic Surgery (Cardiothoracic Vascular Surgery) | DX: I73.9 Peripheral vascular disease, unspecified (principal); L97.516 Non-pressure chronic ulcer of other part of right foot with bone involvement without evidence of necrosis; M86.171 Other acute osteomyelitis, right ankle and foot | CPT/HCPCS: 11042 ==

== ENCOUNTER 2024-03-23 15:39 | Inpatient (IN) | payer MEDICARE, OTHER, SELFPAY ==
[2024-03-23] VITALS (53 sets, daily range): BP systolic 97–181; BP diastolic 46–102; PULSE 50–74; RESP 7–20; TEMP 36.6–36.9; O2SAT 90–100; BMI 16.6; BMI 17.2
--- NOTE | 2024-03-23 07:30 | XACV_ITS ---
Ht: 168 cm Wt: 47 kg BSA: 1.46 m2 Any Known Allergies: Other Gender: Male : 1945 Exam Type: Invasive Peripheral Vascular Procedure(s): Procedure Description: Peripheral Cath Diagnostic Procedure Procedure Description: Abdominal aortic angiography Procedure Description: Lower extremities' angiography Exam Priority: Routine KH, Thapa; Lower Extremity Diagnostic Findings Indication for peripheral angiogram: Critical limb ischemia with amputation of the toe, pain at rest, abnormal CTA with runoffCatheters used: Pigtail Abdominal aortogram: Pigtail was placed at the T12 level, abdominal aortogram was performed with runoff Abdominal aorta: Consistent with moderate infrarenal aneurysmRight renal artery: Angiogram not obtained Left renal artery: Angiogram not obtainedRight common iliac: Luminal irregularity without significant stenosis Right external iliac: Luminal irregularities without significant stenosis Right internal iliac: Appeared to be chronically occluded Right common femoral artery: Luminal irregularity without significant stenosis Right profundofemoral artery: Luminal irregularity without significant stenosis Right SFA: Proximal segment has moderate stenosis mild distal segment has eccentric moderate stenosis, distal SFA appeared to be aneurysmal without significant stenosis Right popliteal artery of the popliteal artery was noted, popliteal artery and 100% chronically occluded in the distal segment just before the tibioperoneal trunk Right tibioperoneal trunk: 100% chronically occluded Right anterior tibial artery: Appeared to be 100% chronically occluded in the proximal segment fills in through collaterals Right anterior tibial artery: Appeared to be 100% chronically occluded in the proximal segment fills in through collaterals Right peroneal artery: 100% chronically occluded in the proximal segment fills in through collaterals:Faint 2 vessel runoff was noted up to the feet, arch was not well-visualizedLeft common iliac artery: Highly calcified significant and highly stenotic torturous vessel with high-grade lesion Left external iliac artery, diffuse luminal irregularity with proximal segment has high-grade lesion Left internal iliac artery: Appeared to be 100% chronically occluded Left common femoral artery: Appeared to have no significant stenosis Left profundofemoral artery: No significant stenosis Left SFA artery: Proximal segment has small aneurysm otherwise no significant stenosis: Left popliteal artery: Appeared to have ectasia without significant stenosis Left tibioperoneal artery: No significant stenosis Left anterior tibial artery: Diffuse atherosclerosis but no significant stenosis Left posterior tibial artery: Appeared to be chronically occluded Left peroneal artery appeared to be chronically occludedSingle-vessel runoff was noted on the left sideLeft arch foot: Not well-visualized Right arch foot: Not well-visualized. 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 Right. Highly calcified torturous significant left common iliac artery occlusion, chronic total occlusion of left posterior tibial and peroneal artery. Single-vessel runoff with left anterior tibial artery noted without significant stenosis. Recommendations Given critical limb ischemia pain at rest and amputation of the right toe, patient will be referred to vascular surgery. He will be admitted for pain control. Patient will be transferred to [facility] where he is accepted under vascular surgery.. Hemodynamic Data Phase:Rest AO : 125.0 / 56.0 ( 81.0 ) @ 10:46:00 AM 109.0 / 68.0 ( 80.0 ) @ 10:51:00 AM Access Site Site: Right Radial artery Sheath Size: 6 Fr Hemost... Method: TR Band Hemost... Success: Successful Procedure Details Findings Procedure Consent Obtained. Pre-Procedure Time Out. Identified patient by full name and date of as verbalized by the patient/guarantor. Does the consent match the physician's order: Yes. Accurate & Complete Informed Consent: Yes. Inpatient/Outpatient History & Physical on Chart: Yes. If H&P is completed, is and addenduem needed: No. Visualize and Verify Site with Patient/Guarantor: N/A. Relevant Radiology Images available: Yes. The risks, benefits, and alternatives of sedation and/or procedure were discussed by physician. The patient agrees to continue. Procedure started. Dictionary Editor Indications: PVD. PERRLA. Strong, equal hand junior architect bilaterally. Lungs clear x 5 lobes. IV Site on Arrival: 20 gauge in the left bicep. IV Fluids: 0.9% NaCl at KVO. 0 mL infused prior to radiographer cardiac catheterization. Pre Procedural Pulses: bilateral dorsalis pedis was Doppled. Pre Procedural Pulses: bilateral dorsalis pedis was Doppled. Pre Procedural Pulses: bilateral posterior tibial was Doppled. Pre Procedural Pulses: bilateral radial was 3+. bilateral groins was prepped with chloroprep then draped in the usual sterile fashion. Physician notified. Baseline sample Acquired. HR: 91 BPM. Sedation and Hemodynamics to be managed by anesthesia. See anesthesia record for details. Patient's family in CPRU room #2. Dr. Thapa will update at the completion of the procedure. Equipment: 6F - Femoral. Cardiac Cath Pack. ACIST Manifold Kit Model BT 2000. Heparinized Saline (2 units/mL), 1000 mL bag. Kit, Micropuncture. Physician arrived. Physician scrubbed in. Immediate Pre-Procedure Time Out. Correct Patient: Yes; Correct Procedure: Yes; Correct Site: Yes; Correct Patient Position: Yes; Correct Supplies: Yes; Dried Flammable Prep: Yes; Blood Products Available: No;. Sedation unsuccessful at this time. Plan to move to General anesthesia. Anesthesia cart here. Anesthesia will be taking and managing the BP from this point forward. See Anesthesia record for full vital signs. Lidocaine 1% infiltrated to the left groin. Arterial access obtained with micropuncture set. Unable to thread micropuncture wire. Needle and wire out. manual pressure held. Arterial access obtained with micropuncture set. Unable to thread micropuncture wire. Needle and wire out. manual pressure held. An attempt to gain access to the left femoral artery was unsuccessful. Manual pressure was held as needed to stop the bleeding. right radial was prepped with chloroprep then draped in the usual sterile fashion. Lidocaine 1% infiltrated to the right radial. Arterial access obtained. A 5 british 125cm Straight Pig catheter in over the exchange J wire. Catheter removed over the exchange J wire. A 5 british JR4 catheter in over the exchange J wire. Exchange J wire out, 260cm stiff angled glidewire in. Glidewire out. Exchange J wire in. Catheter removed over the exchange J wire. A 5 british Gokul catheter in over the exchange J wire. Exchange J wire out. Glidewire in. Catheter removed over the glide wire. A 5 british 125cm Straight Pig catheter in over the glidewire. Glidewire out. Abdominal aortogram performed in AP @ 10 mL/sec for a total of 30 mL. Pigtail postioned above the bifurcation of the iliacs. Aortagram performed @ 10 mL/sec for a total of 30 mL in DSA. Pigtail postioned above the bifurcation of the iliacs. Aortagram performed @ 10 mL/sec for a total of 30 mL in DSA. Pigtail postioned above the bifurcation of the iliacs. Left leg runoff performed @ 10 mL/sec for a total of 30 mL. A TR Band was successful obtaining hemostatsis at the Right Radial artery insertion site. Dr. Thapa scrubbed out. Post Procedure: Pulses reassessed and unchanged. Patient remains sedated per anesthesia. No VTE prophylaxis required. Medication's Wasted: Lidocaine 1% = 8 mL. Medication's Wasted: Nitro = 49.8 mg. Medication's Wasted: Heparin = 1000 units. Total IV fluids: see ansthesia record. Post-op diagnosis: S/P diagnostic peripheral angiogram. Complications: none. Estimated blood loss: 5mL-10mL. Circulation: W/N/L, pulses unchanged. Nausea/Vomiting: No. Procedure completed. Patient transferred by bed to CPRU. Procedure Medications Start: 10:33 AM Stop: 10:33 AM Medication: Heparin Amount: 5000 units Route: I.V. Start: 11:00 AM Stop: 11:00 AM Medication: Nitrogylcerin Amount: 200 mcg Route: I.A. I, the attending physician, have reviewed and verified all procedure medications. Yes, all medications given per verbal order History/Risk Factors Hypertension: Yes Dyslipidemia: Yes Peripheral Arterial Disease (PAD): Yes Obesity: No Renal Disease: No Tobacco Use: Former Prior Interventions PCI: No CABG: Yes Valve Surgery: No Report Signatures Finalized by Idalia Thapa MD on 03/23/2024 10:54 PM
[2024-03-23] MEDS: diphenhydrAMINE 50 mg Capsule PO (08:05)
[2024-03-23] MEDS: aspirin 325 mg Tablet PO (08:05)
--- NOTE | 2024-03-23 08:33 | W.PM.OPSUD ---
Surgery/Procedure H&P Update DATE OF PROCEDURE: March 23, 2024 DATE H&P PERFORMED: 03/02/24 H&P UPDATE INFORMATION: I have reviewed H&P completed within last 30 days, I have examined patient prior to procedure, No changes to prior documentation and Changes to prior documentation as noted here PREOP DIAGNOSIS: Critical limb ischemia and non healing right foot wound PRIMARY INDICATION FOR PROCEDURE: Abn CTA with runoff occluded right fem pop arterial segment Non healing right foot wound PLANNED PROCEDURE: Operation Date: 03/23/24 08:30 Proposed Procedures p Peripheral Diagnostic - Peripheral Angio Bilateral(Not Applicable) - Idalia Thapa MD PATIENT REASSESSED PRIOR TO SEDATION, WITH NO CHANGE NOTED: Yes PHYSICAL EXAM: alert, oriented x 3, clear to auscultation bilaterally and regular rate & rhythm OTHER PERTINENT EXAM FINDINGS: Patient has been explained all risk-benefit and alternative for the procedure patient understand risk of major minor bleed urgent or emergent vascular surgery acute limb ischemia limb loss amputation due to embolization or vascular injury. Patient understand risk for stroke hematoma pseudoaneurysm infection. Patient understand risk for contrast-induced nephropathy leading to temporary permanent dialysis. He would like to proceed with it.
--- NOTE | 2024-03-23 08:52 | ANES.PREANE2 ---
Pre-Anesthetic Assessment Height/Weight: Height 5 ft 6 in Weight 103 lb Temp Pulse Resp BP Pulse Ox O2 Del Method 97.9 F 50 L 20 H 181/72 100 Room Air 03/23/24 08:07 03/23/24 08:07 03/23/24 08:07 03/23/24 08:07 03/23/24 08:07 03/23/24 08:07 Preop Diagnosis: Critical limb ischemia and non healing right foot wound Operation Date: 03/23/24 08:30 Proposed Procedures p Peripheral Diagnostic - Peripheral Angio Bilateral(Not Applicable) - Idalia Thapa MD Was Beta Darryl taken within 24 hours: N/A Was Clonidine taken within 24 hours: N/A Social No alcohol and No tobacco Exam alert, oriented x 3, clear to auscultation bilaterally and regular rate & rhythm Airway Submandibular: within normal limits Cervical ROM: within normal limits Mallampati: Class III Anesthetic Plan ASA status: 3 Anesthesia: MAC Other: No prior issues with anesthesia Prior cath procedure attempted but patient could not sit still NPO since yesterday History of aortic valve replacement in 2008, follows with cardiology. Echo 07/2023 showing EF 51%. Aortic valve area 1.7 Patient is able to perform ADLs Plan for MAC anesthetic Labs reviewed 03/16/2024 and acceptable for procedure Medications/Allergies Home Medications Medication Instructions Recorded Confirmed Last Taken Type warfarin 3 mg tablet 3 mg PO DAILY 04/13/19 03/23/24 Unknown History warfarin 6 mg tablet See Rx Instructions .Route 03/25/21 03/23/24 Unknown Rx .COMPLEX #90 tabs warfarin 5 mg tablet 5 mg PO DAILY #90 tabs 10/04/23 03/23/24 Unknown Rx amlodipine 5 mg tablet 5 mg PO DAILY 10/06/23 03/23/24 03/22/24 09:00 History warfarin 4 mg tablet See Rx Instructions .Route 02/17/24 03/23/24 03/11/24 Rx .COMPLEX #90 tabs enoxaparin 60 mg/0.6 mL 60 mg SUBCUT Q12H 03/22/24 03/23/24 03/22/24 21:00 History subcutaneous syringe Allergies Allergy/AdvReac Type Severity Reaction Status Date / Time levofloxacin Allergy Unknown Verified 03/22/24 09:08 pregabalin Allergy Unknown Verified 03/22/24 09:07 Current Medications Generic Name Dose Route Start Last Admin Trade Name Freq PRN Reason Stop Dose Admin Sodium Chloride 1,000 mls @ 50 mls/hr 03/23/24 07:30 03/23/24 07:24 Sodium Chloride 0.9% IV 03/24/24 03:29 Not Given .Q20H ONE PFSH Anesthesia Medical History RBBB Hyperlipidemia Hypertension Anticoagulation goal of INR 2.5 to 3.5 Coronary artery disease Surgical History S/P CABG (coronary artery bypass graft) SVG to RCA - Dr Rich 01/15/[address] [facility] metallic device 01/15/2009 Social History Smoking and tobacco/nicotine status: former use of tobacco/nicotine Data Anesthesia Cardiac Studies: Echocardiogram 08/02/23
[2024-03-23] MEDS: hyDRALAzine 20 mg/mL INJ 1 mL 10 MG IVP (11:28)
--- NOTE | 2024-03-23 11:29 | PM.PROC ---
Procedure Note: Date of procedure: 03/23/24 Post-procedure diagnosis: same Procedure: Severe peripheral vascular disease, critical limb ischemia of the right foot, complete total occlusion of distal popliteal vessel with aneurysm. Anterior posterior tibial and peroneal vessels were seen on digital subtraction images but fills through collaterals. High-grade torturous left common iliac lesion. Moderate abdominal aortic aneurysm. Plan: Please note that patient was intubated and anesthesia was given as he was not able to stay still on the table despite of propofol. He will be extubated. Plan to recover him in the recovery and send him home tonight. Patient will be scheduled to see vascular surgeon for severe peripheral vascular disease not amenable to percutaneous intervention as an outpatient. After complete bedrest for radial band recovery patient can be discharged home today. Continue current management. Complication: None Coding Level of Care Code Acute Code for [facility]
[2024-03-23] MEDS: morphine 4 mg/mL SDV 1 mL 2 MG IVP (11:56)
[2024-03-23] MEDS: HYDROcodone-acetaminophen 10-325 mg Tablet 1 TAB PO (12:19)
[2024-03-23] MEDS: fentaNYL 50 mcg/mL INJ 2mL IVP (12:19)
--- NOTE | 2024-03-23 13:54 | PC.NURSE ---
TR band off at 1350. No bleeding or hematoma noted at this time.
--- NOTE | 2024-03-23 15:13 | PC.NURSE ---
Called report to EDELMIRA Owusu in [facility].
--- NOTE | 2024-03-23 17:20 | PC.NURSE ---
received from cardiac laborer [facility] at 1530 via stretcher.report received.pt is alert and awake and oriented x 4.sb on monitor.right wrist with drsg dry and intact.no hematoma noted.oriented to room environment.instructed in activity restrictions s/p radial artery procedure and instructed to notify staff for any bleeding,numbness,sob,or if needs to get up out of bed.pt verb understanding of instructions
[2024-03-23] MEDS: enoxaparin 60 mg/0.6 mL Syringe 50 MG SUBCUT (18:21)
--- NOTE | 2024-03-23 22:19 | P.HP_ITS ---
Providers/Chief Complaint Admitting Physician: Idalia Thapa MD Primary Care Provider: Sean Conti MD Chief Complaint: na History of Present Illness Hernandez Madrigal is a 78 year old male past medical history significant hypertension coronary artery bypass surgery aortic valve replacement 2008 with single-vessel bypass SVG to RCA mechanical aortic valve replacement peripheral arterial disease hypertension hyperlipidemia has been referred to us for critical limb ischemia of right leg with pain at rest and amputation of the toe. CTA with runoff was consistent with severe distal right SFA popliteal and below the knee disease involving high-grade left iliac stenosis along with single- vessel runoff below the left knee. It is the reason patient underwent periphera l angiogram today with intention to treat the right distal SFA popliteal and below the knee peripheral arteries. Left common femoral approach was adopted however wire was not advancing through common iliac. We therefore decided to use right radial artery to perform abdominal aortogram with runoff. It was consistent with moderate infra renal abdominal aneurysm, no significant obstructive common internal or external right side iliac disease, right common femoral profunda femoral has luminal irregularities, right SFA noted to have no significant obstructive disease however right popliteal artery was aneurysmal with distal chronic total occlusion, no right side tibioperoneal trunk was visualized, right anterior posterior tibial and peroneal arteries feels sluggishly through collaterals. Given presence of popliteal artery aneurysm and because of the fact left iliac artery has high-grade torturous stenosis not amenable to percutaneous intervention we will refer the patient to [facility] [place]. Since patient has pain at rest he will be transferred from the hospital. Please note that patient right leg remains warm with good motor and sensory. He will be kept in the hospital for pain control. He has been accepted at [facility] with vascular surgery upon availability of bed he will be transferred. Medications/Allergies Home Medications Medication Instructions Recorded Confirmed Last Taken Type warfarin 3 mg tablet 3 mg PO DAILY 04/13/19 03/23/24 Unknown History warfarin 6 mg tablet See Rx Instructions .Route 03/25/21 03/23/24 Unknown Rx .COMPLEX #90 tabs warfarin 5 mg tablet 5 mg PO DAILY #90 tabs 10/04/23 03/23/24 Unknown Rx amlodipine 5 mg tablet 5 mg PO DAILY 10/06/23 03/23/24 03/22/24 09:00 History warfarin 4 mg tablet See Rx Instructions .Route 02/17/24 03/23/24 03/11/24 Rx .COMPLEX #90 tabs enoxaparin 60 mg/0.6 mL 60 mg SUBCUT Q12H 03/22/24 03/23/24 03/22/24 21:00 History subcutaneous syringe Allergies Allergy/AdvReac Type Severity Reaction Status Date / Time levofloxacin Allergy Unknown Verified 03/22/24 09:08 pregabalin Allergy Unknown Verified 03/22/24 09:07 PFSH Acute PFSH: Medical History RBBB Hyperlipidemia Hypertension Anticoagulation goal of INR 2.5 to 3.5 Coronary artery disease Surgical History S/P CABG (coronary artery bypass graft) SVG to RCA - Dr Rich 01/15/[address] [facility] [employer] metallic device 01/15/2009 Social History Smoking and tobacco/nicotine status: former use of tobacco/nicotine Vitals/I&O/Wt Last Vital Signs Temp 98.4 F 03/23/24 20:37 Pulse 55 L 03/23/24 20:37 Resp 14 03/23/24 20:37 BP 130/98 03/23/24 20:37 Pulse Ox 98 03/23/24 20:37 O2 Del Method Room Air 03/23/24 20:37 03/23/24 03/23/24 03/23/24 06:59 14:59 22:59 Output Total 50 / 50 Balance -50 / -50 Weight last 48 hrs Weight 106 lb 7 oz Weight 103 lb Physical Exam Const: OTHER: GENERAL: Patient is alert, awake and oriented x3. He is in moderate distress HEART: Regular S1 and S2. No murmur, rub or gallop. LUNGS: Clear to auscultate bilaterally. CENTRAL NERVOUS SYSTEM: Grossly nonfocal. 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 Coding Level of Care Code Acute Code for [facility] Diagnoses Critical lower limb ischemia I70.229 S/P CABG (coronary artery bypass graft) Z95.1 Right leg pain M79.604
[2024-03-24 00:32] VITALS: BP 191/90; PULSE 80; RESP 15; TEMP 36.5; O2SAT 99
[2024-03-24 02:00] VITALS: BP 178/90
[2024-03-24] MEDS: enoxaparin 60 mg/0.6 mL Syringe 50 MG SUBCUT ×2 (04:31→17:40)
[2024-03-24 04:39] VITALS: BP 161/69; PULSE 114; RESP 16; TEMP 36.5; O2SAT 98
[2024-03-24 05:30] LABS: Basophils # 0.1 10^3/uL (0.0-0.1); Basophils % 0.6 %; Eosinophils # 0.3 10^3/uL (0.0-0.8); Eosinophils % 2.7 %; Hematocrit 42.8 % (37-53); Lymphocytes # 1.4 10^3/uL (0.8-4.8); Lymphocytes % 13.2 %; Mean Corpuscular HGB Conc 32.7 g/dL (30-55); Mean Corpuscular Hemoglobin 32.6 pg (27-33); Mean Corpuscular Volume 99.8 fl (82-101); Mean Platelet Volume 11.5 fL (7.4-10.4); Monocytes # 0.7 10^3/uL (0.2-0.9); Monocytes % 6.9 %; Neutrophils % 76.2 %; Nucleated Red Blood Cells % 0 %; Platelet Count 268 10^3/cmm (157-399); Red Blood Count 4.29 10^6/uL (3.85-5.65); Red Cell Distribution Width 16.6 % (12.1-15.1); White Blood Count 10.75 10^3/uL (3.29-11.43)
[2024-03-24 06:13] LABS: Blood Urea Nitrogen 21 mg/dL (8-23); Calcium 8.7 mg/dL (8.5-10.5); Carbon Dioxide 20 mmol/L (22-29); Chloride 103 mmol/L (98-107); Creatinine Clr Calc Pharmacy 46.1929; Glucose 93 mg/dL (65-115); Osmolality Calculated 283 mOsm/kg (285-295); Sodium 135 mmol/L (136-145)
[2024-03-24 06:21] LABS: Anion Gap 15.9 (5-19); Potassium 3.9 mmol/L (3.5-5.1)
--- NOTE | 2024-03-24 08:57 | PC.CHAP ---
Pastoral Care Encounter/Spiritual Assessment Type of Contact [] Declined snack bar attendant visit [] Patient/Family/Request visit [] Outpatient visit [] Follow-up visit [] Physician referral [] Code/Alert [x] Routine visit [] Staff referral [] Actively dying [] Patient sleeping [] Family support [] [] Out of room [] Palliative care [] [] Receiving care in room [] Pre-surgical visit [] Trauma [] Long length of stay [] ICU visit [] Other: Relational/Emotional Strength [x] Patient feels connected with others/family/visitors/staff [] Distress [] Loneliness/isolation [] Abandonment Spirituality of Patient [x] Person of Alecia [] Attends Adventism of their [place] [x] Believes in Prayer [] Reads Bible or Episcopalian materials [] There are Spiritual issues to be addressed [employer] Interventions [x] Prayer [x] Active listening [x] Non-anxious presence [x] Spiritual/emotional support [] Crisis/trauma care [] Spiritual counseling [] Bereavement support [] Provided bereavement packet [] Provided Bible/devotional materials [] Provided toy/stuffed animal, coloring book to patient or family member [] Provided Communion [] Anointing/[place] [] Salvation [x] Completed spiritual assessment [] Other: Impact on Illness or Injury [] Angry [] Fearful [] Anxious [] Often cries [] Exhaustion [] Unable to work [] Unable to attend buddhism [] Unable to walk/stand [] Unable to read [] Unable to drive [] Unable to eat/drink [] Unable to sleep [] Unable to be with family [] Patient intubated [] Other: Summary Time spent with patient 5 min
[2024-03-24] MEDS: aspirin 81 mg EC Tablet PO (09:06)
[2024-03-24] MEDS: amlodipine 5 mg Tablet PO (09:06)
[2024-03-24 12:09] VITALS: BP 140/78; PULSE 88; RESP 18; TEMP 36.7
--- NOTE | 2024-03-24 14:05 | PC.SOCIAL ---
IMM Update pg 2 of IMM Updated and reviewed w/ patient. Paper signed. Copy provided and copy dated, initialed and placed in chart.
[2024-03-24 16:30] VITALS: BP 152/74; TEMP 36.5
[2024-03-24 17:50] VITALS: BP 152/74; PULSE 62; RESP 18; O2SAT 96
--- NOTE | 2024-03-24 17:50 | PM.DCS ---
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 Patient was referred to vascular surgery. Patient postprocedure continues to have pain because of critical limb ischemia therefore he was kept overnight and watched closely. Initial plan was to transfer him to [facility] but because of the fact they do not have beds, it was advised that since patient's right leg pain is under control and it is not an acute limb ischemia but critical limb ischemia right leg and foot remains warm no motor or sensory deficit and because patient would not like to wait in the hospital until the availability of the bed. He requested to discharge him through his home from there he will go to [facility] upon availability of the bed. At the time of discharge patient does not have right leg or foot pain he is walking around somewhat with steak on the right foot. Advised to keep on holding warfarin but take Lovenox 50 mg subcu twice daily as warfarin will take longer to be out of the system in case patient may need vascular surgery early next week. We have provided patient 7 days of 1 mg/kg twice daily of Lovenox which was called in to [facility]. Primary Care Provider: Sean Conti MD Diagnoses at Discharge Discharge Diagnosis (1) Critical lower limb ischemia: Status: Acute (2) S/P CABG (coronary artery bypass graft): Status: Acute Permanent problem details: SVG to RCA - Dr Rich 01/15/2009 (3) Right leg pain: Status: Acute Reason for Visit Reason for Visit: na Physical Exam HENMT: OTHER: GENERAL: Patient is alert, awake and oriented x3. HEART: Regular S1 and S2. No murmur, rub or gallop. LUNGS: Clear to auscultate bilaterally. CENTRAL NERVOUS SYSTEM: Grossly nonfocal. EXTREMITIES: Lower extremities with out edema bilaterally. 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 Routine Exams 03/23/24 07:30 Completed Laboratory Results WBC 10.75 10^3/uL (3.29-11.43) 03/24/24 04:40 Corrected WBC Cancelled 03/24/24 03:35 RBC 4.29 10^6/uL (3.85-5.65) 03/24/24 04:40 Hgb 14.00 g/dL (11.27-16.99) 03/24/24 04:40 Hct 42.8 % (37-53) 03/24/24 04:40 MCV 99.8 fl (82-101) 03/24/24 04:40 MCH 32.6 pg (27-33) 03/24/24 04:40 MCHC 32.7 g/dL (30-55) 03/24/24 04:40 RDW 16.6 % (12.1-15.1) H 03/24/24 04:40 Plt Count 268 10^3/cmm (157-399) 03/24/24 04:40 MPV 11.5 fL (7.4-10.4) H 03/24/24 04:40 Gran % Cancelled 03/24/24 03:35 Neut % (Auto) 76.2 % 03/24/24 04:40 Lymph % (Auto) 13.2 % 03/24/24 04:40 Dewitt % (Auto) 6.9 % 03/24/24 04:40 Eos % (Auto) 2.7 % 03/24/24 04:40 Baso % (Auto) 0.6 % 03/24/24 04:40 Neut # (Auto) 8.20 10^3/uL (1.8-7.7) H 03/24/24 04:40 Lymph # (Auto) 1.4 10^3/uL (0.8-4.8) 03/24/24 04:40 Dewitt # (Auto) 0.7 10^3/uL (0.2-0.9) 03/24/24 04:40 Eos # (Auto) 0.3 10^3/uL (0.0-0.8) 03/24/24 04:40 Baso # (Auto) 0.1 10^3/uL (0.0-0.1) 03/24/24 04:40 Absolute Gran (auto) Cancelled 03/24/24 03:35 Nucleated RBC % (auto) 0 % 03/24/24 04:40 Nucleated RBCs # 0.0 /100WBC 03/24/24 04:40 Sodium 135 mmol/L (136-145) L 03/24/24 04:40 Potassium 3.9 mmol/L (3.5-5.1) 03/24/24 04:40 Chloride 103 mmol/L (98-107) 03/24/24 04:40 Carbon Dioxide 20 mmol/L (22-29) L 03/24/24 04:40 Anion Gap 15.9 (5-19) 03/24/24 04:40 BUN 21 mg/dL (8-23) 03/24/24 04:40 Creatinine 0.9 mg/dL (0.7-1.2) 03/24/24 04:40 GFR Calculation Not Reportable 03/24/24 04:40 Glucose 93 mg/dL (65-115) 03/24/24 04:40 Calculated Osmolality 283 mOsm/kg (285-295) L 03/24/24 04:40 Calcium 8.7 mg/dL (8.5-10.5) 03/24/24 04:40 Vitals Last Vital Signs Temp 97.7 F 03/24/24 16:30 Pulse 88 03/24/24 12:09 Resp 18 03/24/24 12:09 BP 152/74 03/24/24 16:30 Pulse Ox 98 03/24/24 04:39 O2 Del Method Room Air 03/24/24 04:39 Discharge Plan Discharge Patient Disposition: Home Condition: Stable Prescriptions: New amlodipine 5 mg Tablet 5 mg PO DAILY Qty: 90 0RF acetaminophen 325 mg Tablet 650 mg PO Q6H PRN (Reason: Mild Pain) Qty: 90 0RF Held amlodipine 5 mg tablet 5 mg PO DAILY Hold Instructions: Resume on 03/27/24. warfarin 3 mg tablet 3 mg PO DAILY Hold Instructions: Resume on 03/27/24. Protocol: Dose Management Condition: Wednesday Dose/Route: 4 mg Instruction: 1 x 4 mg tablet Condition: Wednesday Dose/Route: 4 mg Instruction: 1 x 4 mg tablet Condition: Wednesday Dose/Route: 5 mg Instruction: 1 x 5 mg tablet Condition: Wednesday Dose/Route: 4 mg Instruction: 1 x 4 mg tablet Condition: Dose/Route: 5 mg Instruction: 1 x 5 mg tablet Condition: Wednesday Dose/Route: 4 mg Instruction: 1 x 4 mg tablet Condition: Wednesday Dose/Route: 4 mg Instruction: 1 x 4 mg tablet Protocol Text: Adjustment Start Date: Wednesday03/07/24 INR Value: 1.7 INR Date: 03/06/24 Recheck Date: 03/14/24 warfarin 6 mg tablet See Rx Instructions .ROUTE .COMPLEX Qty: 90 0RF Hold Instructions: Resume on 03/27/24. Protocol: Dose Management Condition: Wednesday Dose/Route: 4 mg Instruction: 1 x 4 mg tablet Condition: Wednesday Dose/Route: 4 mg Instruction: 1 x 4 mg tablet Condition: Wednesday Dose/Route: 5 mg Instruction: 1 x 5 mg tablet Condition: Wednesday Dose/Route: 4 mg Instruction: 1 x 4 mg tablet Condition: Dose/Route: 5 mg Instruction: 1 x 5 mg tablet Condition: Wednesday Dose/Route: 4 mg Instruction: 1 x 4 mg tablet Condition: Wednesday Dose/Route: 4 mg Instruction: 1 x 4 mg tablet Protocol Text: Adjustment Start Date: Wednesday03/07/24 INR Value: 1.7 INR Date: 03/06/24 Recheck Date: 03/14/24 Dose Instruction: TAKE DIRECTED PER INR RESULTS, SEE PROTOCOL Rx Instructions: TAKE DIRECTED PER INR RESULTS, SEE PROTOCOL warfarin 5 mg tablet 5 mg PO DAILY Qty: 90 3RF Hold Instructions: Resume on 03/27/24. Protocol: Dose Management Condition: Wednesday Dose/Route: 4 mg Instruction: 1 x 4 mg tablet Condition: Wednesday Dose/Route: 4 mg Instruction: 1 x 4 mg tablet Condition: Wednesday Dose/Route: 5 mg Instruction: 1 x 5 mg tablet Condition: Wednesday Dose/Route: 4 mg Instruction: 1 x 4 mg tablet Condition: Dose/Route: 5 mg Instruction: 1 x 5 mg tablet Condition: Wednesday Dose/Route: 4 mg Instruction: 1 x 4 mg tablet Condition: Wednesday Dose/Route: 4 mg Instruction: 1 x 4 mg tablet Protocol Text: Adjustment Start Date: Wednesday03/07/24 INR Value: 1.7 INR Date: 03/06/24 Recheck Date: 03/14/24 warfarin 4 mg tablet See Rx Instructions .ROUTE .COMPLEX Qty: 90 3RF Hold Instructions: Resume on 03/27/24. Protocol: Dose Management Condition: Wednesday Dose/Route: 4 mg Instruction: 1 x 4 mg tablet Condition: Wednesday Dose/Route: 4 mg Instruction: 1 x 4 mg tablet Condition: Wednesday Dose/Route: 5 mg Instruction: 1 x 5 mg tablet Condition: Wednesday Dose/Route: 4 mg Instruction: 1 x 4 mg tablet Condition: Dose/Route: 5 mg Instruction: 1 x 5 mg tablet Condition: Wednesday Dose/Route: 4 mg Instruction: 1 x 4 mg tablet Condition: Wednesday Dose/Route: 4 mg Instruction: 1 x 4 mg tablet Protocol Text: Adjustment Start Date: Wednesday03/07/24 INR Value: 1.7 INR Date: 03/06/24 Recheck Date: 03/14/24 Dose Instruction: TAKE 1 TABLET BY MOUTH DAILY DIRECTED PER INR RESULTS Rx Instructions: TAKE 1 TABLET BY MOUTH DAILY DIRECTED PER INR RESULTS Discontinued enoxaparin 60 mg/0.6 mL syringe 60 mg SUBCUT Q12H Rx Instructions: 1 injection in AM & PM start evening of 03/16/24. Last dose 03/22 evening. Total doses 13 Discharge Orders: Discharge Order (Routine); Ordered 03/24/24 Ordered By: Idalia Thapa Discharge Diet: Cardiac Discharge Activity: Increase activity as tolerated Patient Instructions: Enoxaparin (By injection) (Lovenox), Peripheral Artery Disease (DC), Opioid Safety, Post Angiogram Home Care Instructions Activity Restrictions/Additional Instructions: Please note that Lovenox 50 mg subcu twice daily called in to [facility] patient preferred pharmacy for 7 days. Patient is going to follow-up with [facility] for vascular surgery. He will be directly admitted there Assessment: Follow-up with cardiology nurse practitioner clinic in 1 week. Follow-up with Dr. Thapa in 1 to 2-month Discharge Attestations Time Spent in Discharge Care*: greater than 30 min Quality Metrics Clinical Quality Measures [ No reported AMI, CVA or VTE this stay] Coding Level of Care Code Acute Code for Chg Fwd Diagnoses Critical lower limb ischemia I70.229 S/P CABG (coronary artery bypass graft) Z95.1 Right leg pain M79.604
--- NOTE | 2024-03-24 19:17 | PC.NURSE ---
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
== END 2024-03-24 18:05 | disposition short-term general hospital (02) | DRG 300 ==
LOC: CSU 17:04
PROVIDERS: Admitting Provider Internal Medicine Cardiovascular Disease; PCP Family Medicine; Visit Provider Internal Medicine Cardiovascular Disease
PROC: B41DYZZ Fluoroscopy of Aorta and Bilateral Lower Extremity Arteries using Other Contrast (ICD-10-PCS; principal; 2024-03-23 08:30)
DX: I70.223 Atherosclerosis of native arteries of extremities with rest pain, bilateral legs (principal); I82.422 Acute embolism and thrombosis of left iliac vein; I82.441 Acute embolism and thrombosis of right tibial vein; I82.451 Acute embolism and thrombosis of right peroneal vein; I71.43 Infrarenal abdominal aortic aneurysm, without rupture; I72.4 Aneurysm of artery of lower extremity; I45.10 Unspecified right bundle-branch block; E78.5 Hyperlipidemia, unspecified; I10 Essential (primary) hypertension; I25.10 Atherosclerotic heart disease of native coronary artery without angina pectoris; Z89.421 Acquired absence of other right toe(s); Z95.1 Presence of aortocoronary bypass graft; Z87.891 Personal history of nicotine dependence; Z95.2 Presence of prosthetic heart valve
CPT/HCPCS: 11042; 36415; 75625; 75710; 80048; 85025; 96365; 96372; 96376; C1769; C1887; C1894; J0360; J1644; J1650; J2270; J2704; J3010; J3490; J7030; Q0163; Q9967

== ENCOUNTER → 2024-04-17 13:37 | Outpatient (BNVA) | payer MEDICARE, OTHER, SELFPAY | PROVIDERS: PCP Family Medicine; Visit Provider Thoracic Surgery (Cardiothoracic Vascular Surgery) | DX: I73.9 Peripheral vascular disease, unspecified (principal); L97.512 Non-pressure chronic ulcer of other part of right foot with fat layer exposed; M86.171 Other acute osteomyelitis, right ankle and foot | CPT/HCPCS: 11042; 97597 ==